=== PATIENT | female | born 2000 | race Caucasian/White ===

== ENCOUNTER 2022-04-13 18:06 | Emergency (ER) | payer OTHER, SELFPAY ==
--- NOTE | 2022-04-13 18:10 | ED.URI ---
HPI - URI/Sore Throat General Chief Complaint: Ear Stated Complaint: sore throat/runny nose/congetion/cough Time Seen by Provider: 04/13/22 18:10 Source: patient and RN notes reviewed History of Present Illness HPI Narrative: Patient is a 21-year-old female who presents the urgent care with complaints of right ear pain, sore throat, runny nose and congestion. Patient states that she had COVID in November and has not retest her self since then. Patient states she has had a sore throat since and the right ear pain started today. Patient has been using ibuprofen. No other acute complaints. No acute distress noted. Patient aware of the plan of care. Some parts of this dictation were generated by voice recognition software and may contain typographical and/or grammatical inaccuracies. Related Data Allergies Allergy/AdvReac Type Severity Reaction Status Date / Time No Known Allergies Allergy Verified 04/13/22 18:23 Review of Systems Review of Systems: CONSTITUTIONAL: Denies fever, chills, or sweats. EYES: Denies visual changes, redness, or discharge. ENT: Reports of rhinorrhea, mild sinus congestion, right otalgia and sore throat CARDIOVASCULAR: Denies chest pain, palpitations, or edema. RESPIRATORY: Denies cough or dyspnea. GASTROINTESTINAL: Denies abdominal pain, nausea, vomiting, or diarrhea. GENITOURINARY: Denies dysuria or hematuria. SKIN: Denies rash or itching. MUSCULOSKELETAL: Denies back pain, joint pain, or myalgia. NEUROLOGIC: Denies headache, numbness, or weakness. All other systems reviewed are negative, except as documented in HPI. PMFSH Comments At the time of my signature, I reviewed and agree with the nursing past medical, surgical, social, and family history. There is no relevant family history pertinent to the patient complaint. Exam Narrative: GENERAL: This is a well-nourished, well-developed patient, in no apparent distress. HEAD: normocephalic, atraumatic. EYES: PERRL. Sclera clear/white. Vision is grossly intact. EARS: External ears normal, auditory canals clear and without drainage. Unable to visualize right TM due to cerumen impaction. Left TM normal without perforation. Hearing grossly intact. NOSE: External nose normal with no obvious nasal discharge, nares without redness, no rhinorrhea. THROAT: Mucous membranes moist, posterior pharynx clear. Mild postnasal drainage NECK: Neck supple CARDIOVASCULAR: Regular rate and rhythm without murmurs, gallops, or rubs. RESPIRATORY: Clear to auscultation. Breath sounds equal bilaterally. No wheezes, rales, or rhonchi. SKIN: warm, intact with no suspicious lesions or rash, good texture and turgor. NEURO: awake, alert, and oriented to person, place and time. There were no obvious focal neurologic abnormalities. EXTREMITIES: No clubbing, cyanosis, or edema. Course Course Level of Care: Express Care Visit Vital Signs Vital signs: Vital Signs Temperature 100 F H 04/13/22 18:16 Pulse Rate 70 04/13/22 18:16 Respiratory Rate 16 04/13/22 18:16 Blood Pressure 115/77 04/13/22 18:16 Pulse Oximetry 100 04/13/22 18:16 Oxygen Delivery Room Air 04/13/22 18:16 Temperature 100 F H 04/13/22 18:16 Pulse Rate 70 04/13/22 18:16 Respiratory Rate 16 04/13/22 18:16 Blood Pressure 115/77 04/13/22 18:16 Pulse Oximetry 100 04/13/22 18:16 Oxygen Delivery Room Air 04/13/22 18:16 Reviewed Procedures Ear Wax Removal Right Ear: Cerumenolytic Used: other (Lighted curette) Results: Re-examined: cerumen removed completely TM Examination: other (Moderate injection/erythema with slight effusion to right TM) Patient Tolerated Procedure: well Complications: no problems MDM - URI/Sore Throat MDM Narrative Medical decision making narrative: Reviewed lab results with the patient. She is aware that strep swab was negative. Educated patient on culture however we will not call with culture results consideri
[2022-04-13 18:16] VITALS: BP 115/77; PULSE 70; RESP 16; TEMP 37.7; O2SAT 100
== END 2022-04-13 18:47 | disposition home or self-care (01) ==
PROVIDERS: Emergency Provider Nurse Practitioner Family
DX: H66.91 Otitis media, unspecified, right ear (principal); J02.9 Acute pharyngitis, unspecified; Z86.16 Personal history of COVID-19
CPT/HCPCS: 87081; 87880; 99203; G0463